=== PATIENT | male | born 1975 | race Caucasian/White ===

== ENCOUNTER → 2023-11-29 06:24 | Day surgery (SDC) | payer BC, SELFPAY | LOC: GI 06:24 | PROVIDERS: ATTENDING PHYSICIAN Internal Medicine Gastroenterology | DX: Z12.11 Encounter for screening for malignant neoplasm of colon (principal); R10.13 Epigastric pain; K22.2 Esophageal obstruction; K44.9 Diaphragmatic hernia without obstruction or gangrene; K22.89 Other specified disease of esophagus; K29.50 Unspecified chronic gastritis without bleeding | CPT/HCPCS: 43239; G0121; 88305; 88342 ==

== ENCOUNTER → 2023-12-25 16:07 | Outpatient (REF) | payer BC, SELFPAY | LOC: RAD 16:07 | PROVIDERS: ATTENDING PHYSICIAN Internal Medicine Gastroenterology; FAMILY PHYSICIAN Nurse Practitioner Family | DX: R10.13 Epigastric pain (principal) | CPT/HCPCS: 76700 ==

== ENCOUNTER → 2024-05-06 08:28 | Outpatient (REF) | payer BC, SELFPAY | LOC: RAD 08:28 | PROVIDERS: ATTENDING PHYSICIAN Family Medicine; FAMILY PHYSICIAN Nurse Practitioner Family | DX: R05.1 Acute cough (principal) | CPT/HCPCS: 71046 ==

== ENCOUNTER → 2024-09-25 14:05 | Outpatient (REF) | payer BC, SELFPAY | LOC: DHSLP 14:05 | PROVIDERS: ATTENDING PHYSICIAN Internal Medicine; FAMILY PHYSICIAN Nurse Practitioner Family | DX: G47.33 Obstructive sleep apnea (adult) (pediatric) (principal) | CPT/HCPCS: 95800 ==

== ENCOUNTER 2024-09-29 12:11 | Emergency (ER) | payer BC, SELFPAY ==
[2024-09-29 12:20] VITALS: BP 157/92
--- NOTE | 2024-09-29 15:27 | ED.GENMED ---
History of Present Illness
General
Chief Complaint: Musculo-Skeletal Complaint
Source: patient
Exam Limitations: none
Time Seen by Provider: 09/29/24 13:29
Nursing documentation reviewed up to this point in time: agreed with
History of Present Illness
History of Present Illness:
49-year-old male past medical history of hypertension presenting to the emergency department today with concerns of a popping sensation to his right lateral posterior knee when walking on uneven ground. Now he feels a popping sensation over time he
fully extends his leg. Denies additional injuries no numbness or weakness.
Review of Systems
Review of Systems
Allergies reviewed?: Yes
All Other Systems: ROS reviewed and negative except as documented in HPI and ROS
Phy Exam
Physical Exam
Physical Exam:
GENERAL: Alert , in no apparent distress
EYE: pupils equal and reactive
NECK: Supple, no significant adenopathy.
ENT: o/p clr, mmm.
CARDIAC: Regular rate and rhythm .
LUNGS: Clear breath sounds bilaterally, no acute respiratory distress, no wheezes/rales/rhonchi
ABDOMEN: Soft, without focal tenderness, no r/g, no cvat
NEUROLOGICAL: Alert and oriented, no focal neuro deficits
SKIN: Warm and dry, skin intact.
MUSCULOSKELETAL: Tenderness to the lateral posterior knee region no joint laxity normal knee range of motion and strength as well as normal ankle range of motion strength normal distal dorsalis pedis and posterior tibialis pulses normal skin tone no
swelling no edema, well perfused.
PSYCH: Normal and appropriate interaction.
Course
Orders/Labs/Results
Orders:
Orders
09/29/24 12:22
CR Knee- Right 4 Or More View* Urgent
Comment:
Reason For Exam: 'popping' and pain
09/29/24 15:08
Paul Wrap Right-Treatment ONCE
Crutches-Treatment ONCE
Vital Signs
Initial and Last Documented VS:
Initial Vital Signs
Temp Pulse Resp BP Pulse Ox
99.1 F 111 18 157/92 98
09/29/24 12:20 09/29/24 12:20 09/29/24 12:20 09/29/24 12:20 09/29/24 12:20
Last Documented Vital Signs
Temp Pulse Resp BP Pulse Ox
99.1 F 111 18 157/92 98
09/29/24 12:20 09/29/24 12:20 09/29/24 12:20 09/29/24 12:20 09/29/24 12:20
MDM/Problems Addressed
MDM/Problems Addressed:
49-year-old male presenting to the emergency department today with concerns of a popping sensation to his lateral posterior knee that occurred when walking on uneven ground earlier today. Increased discomfort with ambulation as well as full
extension of the knee. Here no redness or warmth no evidence of infection very unlikely to be blood clot considering it was abrupt in onset. No joint laxity potentially could be a muscle injury patient was given an Paul bandage as well as crutches
to be used only for a brief period of time and otherwise close orthopedic follow-up. Return precautions given.
*Critical Care Note
Total Time (30-74mins, 75-104mins- exclusive of procedures): Not Applicable
ED Attending Note
-
Portions of this chart may have been created with voice recognition software.� Occasional wrong word or��sound alike� substitutions may have occurred due to the inherent limitations of voice recognition software.
Discharge Plan
Departure
Patient Disposition: Home (Routine Discharge)
Date of Disposition: 09/29/24
Time of Disposition: 15:29
Patient with high blood pressure during this ER visit?: No
Condition: Good
Covid-19: Not Applicable
Discharge Problem:
Muscle strain of right knee
Instructions: Muscle Strain (DC)
Referrals:
Rich Guido MD [Active] - Follow up in 1 week
Carito Mccall CRNP [Family Provider] -
Activity Restrictions/Additional Instructions:
You came to the emergency department today after an injury to your right knee. This is likely a muscle injury. Please rest ice compress and elevate and follow-up closely with orthopedics. Return for any worsening, new or concerning symptoms.
Interventions
Interventions:
*Risk Screen - Suicide Last Done: 09/29/24 12:20
*General Assessment Last Done: 09/29/24 12:20
*Neglect/Abuse Screening Last Done: 09/29/24 12:20
*ED COVID-19 Vaccine History Last Done: 09/29/24 12:20
ED-Musculoskeletal Assessment Last Done: 09/29/24 14:43
Discharge Date and Time
Print Language: [id number]
== END 2024-09-29 15:42 | disposition home or self-care (01) ==
LOC: EMR 12:11
PROVIDERS: EMERGENCY PHYSICIAN Emergency Medicine; FAMILY PHYSICIAN Nurse Practitioner Family
DX: S86.911A Strain of unspecified muscle(s) and tendon(s) at lower leg level, right leg, initial encounter (principal); X58.XXXA Exposure to other specified factors, initial encounter; Y93.01 Activity, walking, marching and hiking; I10 Essential (primary) hypertension
CPT/HCPCS: 99283; 73564

== ENCOUNTER → 2024-10-09 09:33 | Outpatient (REF) | payer BC, SELFPAY | LOC: RAD 09:33 | PROVIDERS: ATTENDING PHYSICIAN Specialist; FAMILY PHYSICIAN Nurse Practitioner Family | DX: S05.50XA Penetrating wound with foreign body of unspecified eyeball, initial encounter (principal) | CPT/HCPCS: 70030 ==